=== PATIENT | male | born 1950 | race Caucasian/White ===

== ENCOUNTER → 2019-01-04 | Outpatient (REF) | payer BC | LOC: M SFHCPLAZ 16:56 | PROVIDERS: ATTEND Dermatology | DX: L82.1 Other seborrheic keratosis (principal) ==

== ENCOUNTER → 2019-05-03 | Outpatient (REF) | payer BC ==
[2019-05-06 10:36] LABS: FOLATE 15.6 NG/ML; VITAMIN B12 LEVEL 672 PG/ML
== END ==
LOC: M LAB REF 17:44
PROVIDERS: ATTEND Family Medicine
DX: R53.83 Other fatigue (principal); R41.3 Other amnesia

== ENCOUNTER → 2019-05-23 | Outpatient (REF) | payer BC ==
[2019-05-23 18:40] LABS: THYROID STIMULATING HORMONE 1.87 uIU/ML (0.358-3.740)
[2019-05-23 18:44] LABS: FOLATE 15.4 NG/ML
== END ==
LOC: M LABDRAW1 15:29
PROVIDERS: ATTEND Psychiatry & Neurology Neurology
DX: R41.3 Other amnesia (principal); D51.9 Vitamin B12 deficiency anemia, unspecified

== ENCOUNTER → 2020-11-12 | Outpatient (REF) | payer MEDICARE, BC | LOC: M LAB REF 16:49 | PROVIDERS: ATTEND Nurse Practitioner Adult Health | DX: R35.0 Frequency of micturition (principal) ==

== ENCOUNTER → 2020-12-24 | Outpatient (REF) | payer MEDICARE, BC ==
[2020-12-24 17:35] LABS: AMORPHOUS SEDIMENT SMALL (NEGATIVE); APPEARANCE, URINE TURBID (CLEAR); BACTERIA, URINE AUTO NEGATIVE (NEGATIVE); BILIRUBIN, URINE AUTO NEGATIVE (NEGATIVE); BLOOD, URINE BLOOD NEGATIVE (NEGATIVE); COLOR, URINE AMBER (YELLOW); GLUCOSE, URINE (UA) AUTO NEGATIVE (NEGATIVE); KETONE, URINE AUTO NEGATIVE (NEGATIVE); LEUKOCYTE ESTERASE, URINE AUTO NEGATIVE (NEGATIVE); MUCUS, URINE LARGE (NEGATIVE); NITRITE, URINE AUTO NEGATIVE (NEGATIVE); PROTEIN, URINE AUTO 1+ mg/dL (NEGATIVE); RBC, URINE AUTO 0 /HPF (0-3); SPECIFIC GRAVITY URINE AUTO 1.032 (1.002-1.035); SQUAMOUS EPITHELIAL CELL UR AU 0 /HPF (0-6); WBC, URINE AUTO 2 /HPF (0-3)
== END ==
LOC: M SMT 16:55
PROVIDERS: ATTEND Urology
DX: N40.1 Benign prostatic hyperplasia with lower urinary tract symptoms (principal)

== ENCOUNTER 2021-04-01 15:17 | Emergency (ER) | payer MEDICARE, BC ==
[~2021-04-01] VITALS: Ht 165.1 cm; Wt 99.7 kg
[2021-04-01] MEDS ORDERED: DONE10TA90 (15:30)
[2021-04-01] MEDS ORDERED: MEMA10TA19 (15:30)
[2021-04-01] MEDS ORDERED: ASPI81TA78 (15:30)
[2021-04-01 17:57] LABS: BLOOD UREA NITROGEN 24 MG/DL (7-18); CALCIUM LEVEL 9.1 MG/DL (8.8-10.2); CARBON DIOXIDE LEVEL 33 MEQ/L (21-32); CHLORIDE LEVEL 102 MEQ/L (98-107); CREATININE FOR GFR 0.93 MG/DL (0.70-1.30); GLOMERULAR FILTRATION RATE > 60.0 (>49); GLUCOSE, FASTING 93 MG/DL (70-100); POTASSIUM SERUM 4.1 MEQ/L (3.5-5.1); SODIUM LEVEL 138 MEQ/L (136-145)
[2021-04-01] MEDS: APIXABAN 5 MG TAB (ELIQUIS) PO ONE (18:15)
[2021-04-01] MEDS ORDERED: ELIQ5TAB PO (18:24)
[2021-04-01 18:28] VITALS: BP 138/78
== END 2021-04-01 18:45 | disposition home or self-care (01) ==
LOC: M ED 15:17
DX: I80.292 Phlebitis and thrombophlebitis of other deep vessels of left lower extremity (principal); G30.9 Alzheimer's disease, unspecified; Z79.82 Long term (current) use of aspirin; Z79.899 Other long term (current) drug therapy; Z86.718 Personal history of other venous thrombosis and embolism; Z98.890 Other specified postprocedural states

== ENCOUNTER → 2021-04-01 | Outpatient (CLI) | payer MEDICARE, BC ==
[~2021-04-01] MED LIST: ASPI81TA78; DONE10TA90; ELIQ5TAB PO; MEMA10TA19
--- NOTE | 2021-04-01 14:52 | REP ---
INDICATION: LT LEG PAIN SWELLING ? DVT. COMPARISON: None. TECHNIQUE: Multiple ultrasonographic images of the deep venous structures of the left lower extremity were obtained from the inguinal ligament to the ankle. Venous compression techniques, color doppler imaging, and augmentation techniques were also obtained where appropriate. As per the ACR guidelines the anterior tibial vein can not be effectively evaluated. Only compression techniques in the calf on the peroneal and posterior tibial veins was attempted/performed. FINDINGS: There is no abnormal echogenic material seen within any of the visualized deep venous structures of the thigh and knee that would suggest acute thrombosis. Coaptation is unremarkable throughout the thigh and knee deep veins. Doppler interrogation shows an expected response to respiratory variability and augmentation in the thigh. Compression techniques in the calf showed abnormal echogenic material in the peroneal vein which was non coaptable. The color flow images show what appears to be a normal vascular pattern throughout the thigh. IMPRESSION: There is no ultrasonographic evidence of deep venous thrombosis involving any of the visualized deep venous structures of the left thigh as described above. There is evidence of a left calf DVT as described above. <Electronically signed by Piero Ledbetter > 04/01/21 2221
== END ==
LOC: M RAD 14:00
PROVIDERS: ATTEND Orthopaedic Surgery
DX: M79.662 Pain in left lower leg (principal)

== ENCOUNTER → 2022-09-20 | Outpatient (REF) | payer MEDICARE, BC | LOC: M LAB REF 16:39 | PROVIDERS: ATTEND Family Medicine | DX: Z79.899 Other long term (current) drug therapy (principal); F02.80 Dementia in other diseases classified elsewhere, unspecified severity, without behavioral disturbance, psychotic disturbance, mood disturbance, and anxiety ==

== ENCOUNTER → 2024-05-17 | Outpatient (REF) | payer MEDICARE, BC ==
[~2024-05-17] MED LIST changes: +MEMA10TA; -MEMA10TA19
[2024-05-17 15:56] LABS: FOLATE 6.9 NG/ML (>5.4)
== END ==
LOC: M LAB REF 12:53
PROVIDERS: ATTEND Family Medicine
DX: R41.3 Other amnesia (principal); R41.0 Disorientation, unspecified